=== PATIENT | female | born 1995 | race Caucasian/White ===

== ENCOUNTER 2017-09-24 08:19 | Inpatient (IN) | payer OTHER ==
[2017-09-24] VITALS (34 sets, daily range): BP systolic 115–158; BP diastolic 55–82
[~2017-09-24] VITALS: Ht 167.6 cm; Wt 117.0 kg
[2017-09-24 10:09] LABS: BASOPHIL (%) 0.2 % (0-1); EOSINOPHIL (%) 1.6 % (0-5); EOSINOPHIL COUNT 0.2 K/uL (0-0.3); HEMOGLOBIN 10.3 G/DL (11.9-15.5); IMMATURE GRANULOCYTE (%) 0.7 % (0.0-0.7); LYMPHOCYTE (%) 18.7 % (15-42); MCH 29.3 PG (29.0-34.0); MCHC 33.2 G/DL (30.0-36.0); MCV 88.1 FL (83-99); MONOCYTE (%) 6.1 % (3-12); MONOCYTE COUNT 0.7 K/uL (0-0.8); NEUTROPHIL (%) 72.7 % (45-76); NEUTROPHIL COUNT 7.8 K/uL (1.8-6.4); PLATELET COUNT 270 K/uL (156-360); RBC DIS.WIDTH-CV 13.2 % (11.8-14.6); RBC DIS.WIDTH-SD 42.8 % (39-53); RED BLOOD COUNT 3.52 M/uL (3.80-5.20); WHITE BLOOD COUNT 10.7 K/uL (4.1-10.2)
[2017-09-24 10:26] LABS: AMPHETAMINE NEGATIVE (500 ng/mL); BARBITURATES NEGATIVE (200 ng/mL); BENZODIAZEPINES NEGATIVE (150 ng/mL); COCAINE NEGATIVE (150 ng/mL); METHADONE NEGATIVE (200 ng/mL); METHAMPHETAMINE NEGATIVE (500 ng/mL); OPIATES (MORPHINE) NEGATIVE (100 ng/mL); OXYCODONE NEGATIVE (100 ng/mL); PHENCYCLIDINE NEGATIVE (25 ng/mL); PROPOXYPHENE NEGATIVE (300 ng/mL); THC CANNABINOIDS NEGATIVE (50 ng/mL); TRICYCLIC ANTIDEPRESSANTS NEGATIVE (300 ng/mL)
[2017-09-24 10:27] LABS: BUPRENORPHINE PRESUMPTIVE POSITIVE (10 ng/mL)
[2017-09-24 10:29] LABS: APPEARANCE CLOUDY ((CLEAR)); BILIRUBIN NEGATIVE; BLOOD NEGATIVE; COLOR YELLOW ((YELLOW)); GLUCOSE (STRIP) NEGATIVE; KETONES NEGATIVE; LEUKOCYTES SMALL; NITRITE NEGATIVE; PROTEIN (STRIP) NEGATIVE; SPECIFIC GRAVITY 1.014 (1.000-1.030)
[2017-09-24 10:33] LABS: ALKALINE PHOSPHATASE 129 IU/L (3-129); ALT (GPT) 8 IU/L (3-49); AST (GOT) 10 IU/L (2-34); CHLORIDE 108 MEQ/L (99-109); CREATININE 0.5 MG/DL (0.6-1.3); GFR ESTIMATE (CALCULATED) > 59 mL/min/; GLUCOSE 94 mg/dL (70-99); LACTATE DEHYDROGENASE 110 IU/L (20-246); POTASSIUM 3.8 MEQ/L (3.7-5.4); SODIUM 138 MEQ/L (136-147); TOTAL BILIRUBIN 0.3 MG/DL (0.0-1.0); TOTAL PROTEIN 5.5 G/DL (6.4-8.3); UREA NITROGEN (BUN) 5 mg/dL (9-23); URIC ACID 4.8 mg/dL (3.1-9.2)
[2017-09-24] MEDS ORDERED: PRENATAL TABLE1 EACH PO (10:40)
[2017-09-24] MEDS ORDERED: BUPRENORPHINE HC2 MG SL (10:40)
[2017-09-24 10:57] LABS: BACTERIA 1+ /HPF; EPITHELIAL CELLS 3+ /HPF; MUCUS NONE SEEN /LPF; RED BLOOD CELLS 0-5 /HPF (0-5); UCUL ADDED? YES; WHITE BLOOD CELLS 20-30 /HPF (0-5)
[2017-09-24 11:10] LABS: UR CREATININE CONCENTRATION 140.2 MG/DL
[2017-09-24 11:39] LABS: HEMOGLOBIN A1c (GLYCOHEMOGLOB) 5.2 % (Below 5.7)
[2017-09-25 08:02] LABS: BASOPHIL (%) 0.2 % (0-1); EOSINOPHIL (%) 1.5 % (0-5); EOSINOPHIL COUNT 0.2 K/uL (0-0.3); HEMOGLOBIN 10.2 G/DL (11.9-15.5); IMMATURE GRANULOCYTE (%) 0.7 % (0.0-0.7); LYMPHOCYTE (%) 24.3 % (15-42); MCH 29.1 PG (29.0-34.0); MCHC 32.9 G/DL (30.0-36.0); MCV 88.6 FL (83-99); MONOCYTE (%) 6.3 % (3-12); MONOCYTE COUNT 0.8 K/uL (0-0.8); NEUTROPHIL COUNT 8.1 K/uL (1.8-6.4); PLATELET COUNT 269 K/uL (156-360); RBC DIS.WIDTH-CV 13.4 % (11.8-14.6); RBC DIS.WIDTH-SD 43.9 % (39-53); WHITE BLOOD COUNT 12.1 K/uL (4.1-10.2)
[2017-09-26 00:16] VITALS: BP 129/66
[2017-09-26 07:30] VITALS: BP 118/68
[2017-09-26] MEDS ORDERED: IBUPROFEN800 MG PO (09:55)
[2017-09-26] MEDS ORDERED: KEFLEX500 MG PO (09:56)
[2017-09-26 11:05] LABS: HCV RNA (LOG IU/mL) 5.82 (())
== END 2017-09-26 14:18 | disposition home or self-care (01) | DRG 774 ==
LOC: LDRP-OP 08:19 → 2WEST 08:20 → LDRP-OP 12:54 → 2WEST 21:19 → LDRP-OP 09-25 12:53 → 2WEST 09-26 14:18
PROVIDERS: Advanced Practice Midwife
DX: O48.0 Post-term pregnancy (principal); Z68.41 Body mass index [BMI] 40.0-44.9, adult; F11.20 Opioid dependence, uncomplicated; O99.354 Diseases of the nervous system complicating childbirth; O98.42 Viral hepatitis complicating childbirth; F33.9 Major depressive disorder, recurrent, unspecified; Z37.0 Single live birth; Z3A.40 40 weeks gestation of pregnancy; O69.1XX1 Labor and delivery complicated by cord around neck, with compression, fetus 1; O99.214 Obesity complicating childbirth; O99.334 Smoking (tobacco) complicating childbirth; O99.344 Other mental disorders complicating childbirth; G40.909 Epilepsy, unspecified, not intractable, without status epilepticus; J45.909 Unspecified asthma, uncomplicated; O99.52 Diseases of the respiratory system complicating childbirth; F12.10 Cannabis abuse, uncomplicated; E66.9 Obesity, unspecified; F43.10 Post-traumatic stress disorder, unspecified; O12.04 Gestational edema, complicating childbirth; F41.9 Anxiety disorder, unspecified; B18.2 Chronic viral hepatitis C; Z91.14 Patient's other noncompliance with medication regimen; Z87.440 Personal history of urinary (tract) infections
CPT/HCPCS: 80053; 81003; 82570; 83036; 83615; 84156; 84550; 85025; 87070; 87075; 87077; 87086; 87106; 87186; 87205; 87522 90; C1755; J0571; J1050; J2795; J7120